=== PATIENT | female | born 1945 | race Asian ===

== ENCOUNTER 2017-09-04 14:20 | Inpatient (IN) | payer OTHER ==
[~2017-09-04] VITALS: Ht 160 cm; Wt 55.8 kg
[2017-09-04] VITALS (8 sets, daily range): BP systolic 141–188; BP diastolic 80–99
[~2017-09-04 14:20] MED LIST: Actonel; DETROL LA4 MG PO; Diovan; LOVASTAT10 PO; MESTINON60 MG PO; VITAMIN D3400 UNIT PO; ZOFRAN ODT4 MG PO; [UNRECOGNIZED DRUG - OTHER]
[2017-09-04 15:00] LABS: ABSOLUTE BASOPHILS 0.1 thou/uL (0.0-0.2); ABSOLUTE EOSINOPHILS 0.1 thou/uL (0.0-0.7); ABSOLUTE MONOCYTES 0.4 thou/uL (0.0-1.2); ABSOLUTE NEUTROPHILS 4.5 thou/uL (1.6-8.1); BASOPHILS 1.4 %; EOSINOPHILS 2.3 %; HEMATOCRIT 44.7 % (37.0-47.0); LYMPHOCYTES 16.7 %; MCHC 33.6 g/dL (28.0-37.0); MCV 95.3 fL (80.0-100.0); MPV 9.3 fl. (7.2-11.1); NUCLEATED RBCS 0 /100WBC; PLATELET COUNT* 190 thou/uL (150-400); POLYS 73.6 %; RBC 4.69 mil/uL (4.20-5.00); RDW-CV 13.1 % (10.5-14.5); WBC 6.1 thou/uL (4.0-11.0)
[2017-09-04 15:10] LABS: ANION GAP 5 mmol/L (7-16); BUN 14 mg/dL (7-18); CALCIUM 9.2 mg/dL (8.5-10.1); CHLORIDE 105 mmol/L (98-107); CO2 31 mmol/L (21-32); CREATININE 0.8 mg/dL (0.6-1.3); GLUCOSE 138 mg/dL (70-99); INR 1.1; POTASSIUM 3.7 mmol/L (3.5-5.1); PROTIME 10.3 Seconds (9.20-11.50); SODIUM 141 mmol/L (136-145)
[2017-09-04 15:17] LABS: ALKALINE PHOSPHATASE 75 U/L (46-116); SGOT 26 U/L (15-37); SGPT 19 U/L (30-65); TOTAL BILIRUBIN 0.9 mg/dL (<0.1-1.0); TOTAL PROTEIN 8.3 g/dL (6.4-8.2); TROPONIN-I LEVEL <0.06 ng/mL (<0.06)
[2017-09-05] VITALS (11 sets, daily range): BP systolic 110–149; BP diastolic 57–83
[2017-09-05 03:47] LABS: CHOLESTEROL 183 mg/dL (<200); HDL CHOLESTEROL 63 mg/dL (>40); LDL CHOLESTEROL 103 mg/dL (<100); TC:HDL 2.9 Ratio (Not establshd); TRIGLYCERIDE 85 mg/dL (<150); VLDL 17 mg/dL (<40)
[2017-09-05 04:07] LABS: SERUM ASSESSMENT CLEAR
[2017-09-05 04:50] LABS: ALBUMIN 3.4 g/dL (3.4-5.0); CALCIUM 8.8 mg/dL (8.5-10.1); CREATININE 0.9 mg/dL (0.6-1.3); POTASSIUM 3.8 mmol/L (3.5-5.1); TOTAL BILIRUBIN 0.8 mg/dL (<0.1-1.0); TOTAL PROTEIN 6.8 g/dL (6.4-8.2)
[2017-09-05 04:58] LABS: HEMATOCRIT 41.1 % (37.0-47.0); HEMOGLOBIN 13.9 gm/dL (12.0-15.0); MCH 32.3 pg (26.0-34.0); MCHC 33.8 g/dL (28.0-37.0); MCV 95.6 fL (80.0-100.0); MPV 9.6 fl. (7.2-11.1); RBC 4.3 mil/uL (4.20-5.00); RDW-CV 12.9 % (10.5-14.5); WBC 6.4 thou/uL (4.0-11.0)
[2017-09-05] MEDS ORDERED: NORVASC5 MG PO (07:16)
[2017-09-05] MEDS ORDERED: CELEXA10 MG PO (07:17)
[2017-09-05] MEDS ORDERED: PYRIDOSTIGMINE60 M1 PO (07:18)
[2017-09-05] MEDS ORDERED: GLUCOSAMINE HC500 MG PO (08:10)
[2017-09-05] MEDS ORDERED: TURMERIC500 M2 PO (08:12)
[2017-09-05] MEDS ORDERED: FISH OIL 1,001000 M2 PO (08:16)
[2017-09-05] MEDS ORDERED: CENTRUM SILVER1 EAC4 PO (08:16)
[2017-09-05] MEDS ORDERED: ASPIR 8181 MG PO (08:16)
[2017-09-05] MEDS ORDERED: VITAMIN D-32000 UNIT PO (08:16)
[2017-09-05] MEDS ORDERED: TOPROL XL25 MG PO (08:17)
[2017-09-05] MEDS ORDERED: LIPITOR10 MG PO (08:18)
[2017-09-05] MEDS ORDERED: AVAPRO 150 MG150 M1 PO (08:18)
[2017-09-05] MEDS ORDERED: DETROL LA4 MG PO (08:19)
--- NOTE | 2017-09-05 14:17 | 2DMMODE ---
[place] [address] 2 D/M-MODE ECHOCARDIOGRAM Name: SIDDIQUIGERMAINE Room: [address] IN [facility]#: [id number] Admission: 09/04/17 Attend Phys: Cathy Kirk, Discharge: Date of : 47 Date of Service: 09/05/17 1417 Report #: [id number] THIS REPORT FOR: //name// APPROVED REPORT Study performed: 09/05/2017 10:55:35 EXAM: Comprehensive 2D, Doppler, and color-flow Echocardiogram Patient Location: In-Patient Room #: 006 Status: routine BSA: 1.70 HR: 67 bpm BP: 138/80 mmHg Rhythm: NSR Other Information Study Quality: Good Indications CVA/TIA Echo Enhancing Agent Indication: Rule out Shunt Agent(s) / Amount(s) Used: Agitated Saline 10 cc 2D Dimensions LVEF(%): 59.35 (>50%) IVSd: 13.58 (7-11mm) LVOT Diam: 20.41 (18-24mm) LVDd: 39.04 mm PWd: 10.39 (7-11mm) Ascending Ao: 32.20 (22-36mm) LVDs: 26.94 (25-40mm) Aortic Root: 34.84 mm Alvarez's LVEF: 59.35 % Volumes Left Atrial Volume (Systole) LA ESV Index: 22.60 mL/m2 Aortic Valve AoV Peak Vince.: 0.88 m/s AO Peak Gr.: 3.13 mmHg LVOT Max P.96 mmHg AO Mean Gr.: 1.70 mmHg LVOT Mean P.81 mmHg LVOT Max V: 0.70 m/s AO V2 VTI: 16.50 cm LVOT Mean V: 0.41 m/[place] [address] 2 D/M-MODE ECHOCARDIOGRAM Name: SIDDIQUIGERMAINE Room: [address] IN .R.#: [id number] Admission: 09/04/17 Attend Phys: Cathy Kirk, Discharge: Date of : 47 Date of Service: 09/05/17 1417 Report #: [id number] SOILA (VTI): 3.16 cm2 LVOT V1 VTI: 15.93 cm Mitral Valve E/A Ratio: 0.47 MV Decel. Time: 330.01 ms MV E Max Vince.: 0.34 m/s MV PHT: 95.70 ms MVA (PHT): 2.30 cm2 TDI E/Lateral E': 3.78 E/Medial E': 6.80 Medial E' Vince.: 0.05 m/s Lateral E' Vince.: 0.09 m/s Pulmonary Valve PV Peak Vince.: 0.76 m/s PV Peak Gr.: 2.33 mmHg Tricuspid Valve TR Peak Gr.: 17.81 mmHg RVSP: 22.00 mmHg Left Ventricle The left ventricle is normal size. There is normal LV segmental wall motion. There is normal left ventricular wall thickness. Left ventricular systolic function is normal. The left ventricular ejection fraction is within the normal range. LVEF is 60%. Grade I - abnormal relaxation pattern. Right Ventricle The right ventricle is normal size. The right ventricular systolic function is normal. Atria The left atrium size is normal. Interatrial septum is intact without evidence of ASD or PFO. The right atrium size is normal. Aortic Valve Mild aortic valve sclerosis. No aortic regurgitation is present. There is no aortic valvular stenosis. Mitral Valve There is mitral annular calcification. Trace mitral regurgitation. No evidence of mitral valve stenosis. Tricuspid Valve The tricuspid valve is normal in structure. Trace tricuspid regurgitation. The RVSP is ___22____ [place] [address] 2 D/M-MODE ECHOCARDIOGRAM Name: GERMAINE SIDDIQUI Room: [address] IN M.R.#: [id number] Admission: 09/04/17 Attend Phys: Cathy Kirk, Discharge: Date of : 47 Date of Service: 09/05/17 1417 Report #: [id number] Pulmonic Valve The pulmonary valve is normal in structure. There is no pulmonic valvular regurgitation. Great Vessels The aortic root is normal in size. IVC is normal in size and collapses with >50% inspiration Pericardium There is no pericardial effusion. <Conclusion> The left ventricle is normal size. There is normal left ventricular wall thickness. Left ventricular systolic function is normal. The left ventricular ejection fraction is within the normal range. LVEF is 60%. Grade I - abnormal relaxation pattern. The right ventricle is normal size. The left atrium size is normal. Mild aortic valve sclerosis. No aortic regurgitation is present. There is no aortic valvular stenosis. There is mitral annular calcification. Trace mitral regurgitation. The tricuspid valve is normal in structure. Trace tricuspid regurgitation. The RVSP is ___22____ mmHg. IVC is normal in size and collapses with >50% inspiration There is no pericardial effusion. There is normal LV segmental wall motion. Interatrial septum is intact without evidence of ASD or PFO. <ELECTRONICALLY SIGNED> By: Diego Dave MD, FACC 09/05/17 141 16 16 Diego Dave MD, FACC /INF
--- NOTE | 2017-09-05 15:51 | EKG ---
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 ANTONIO : 1945 Requested By: Cody Dorman Order Number: [id number] : Diego Dave Measurements Intervals [place] Rate: 72 P: 31 GA: 154 QRS: -1 QRSD: 85 T: 164 QT: 513 QTc: 562 Interpretive Statements Sinus rhythm LVH with secondary repolarization abnormality Prolonged QT interval No previous ECG available for comparison Electronically Signed On 09-05-2017 15:50:49 ADULT CARE PROVIDER by Diego Dave [email or web address] <ELECTRONICALLY SIGNED> By: Diego Dave MD, [facility] 09/05/17 1550 15 15 Diego Dave MD, FAC /EPI
--- NOTE | 2017-09-05 17:38 | CON ---
[address] [address] CONSULTATION Name: GERMAINE SIDDIQUI Rajeev Room: [address] IN M.R.#: [id number] Admission: 09/04/17 Attend Phys: Cathy Kirk MD Discharge: Date of : 47 Report #: [id number] THIS REPORT FOR: //name// CC: Cathy Long DATE OF SERVICE: 09/05/2017 HISTORY OF PRESENT ILLNESS: This is a 71-year-old female patient who was evaluated by me for stroke-like symptoms, which started yesterday. She tells me the symptoms are on the left side and it is mainly the tingling and numbness, but some of the records indicate that this patient may have had some weakness also. She has not progressed, the symptoms came spontaneously and has stayed about the same, she does not know any aggravating or relieving factor for that. REVIEW OF SYSTEMS: Indicate the history is somewhat difficult, but the family says that she has been to [facility] as well as [facility] for similar symptoms, but they did not find a stroke. They thought her symptoms were related to her hypertension. She also has a history of migraine headache. They are not very frequent, but they usually unilateral. They come spontaneously, but is associated with photophobia. She never had any symptoms referable to focalities with her migraine. I carried out rest of the 14-point system, it looks unremarkable. She said she did have some heart problems and hyperlipidemia, but she does not know anything more about that. She still is having tingling and numbness, but overall her symptoms are better. She denies any visual, ENT, cardiac, respiratory, GI, , musculoskeletal, constitutional, dermatological, hematological, psychiatric, throat, allergic, endocrine symptom associated with present symptomatology. PAST MEDICAL HISTORY: Positive for similar symptoms, but I do not have the workup available. FAMILY HISTORY: Negative for early age stroke. SOCIAL HISTORY: She does not smoke or drink any alcohol. PHYSICAL EXAMINATION: The patient's examinations indicate that this patient is alert, responsive, she believes her speech, concentration, fund of knowledge and memory is at her baseline. Cranial nerve examination 2-12 is unremarkable. She does have subjective numbness, but otherwise motor, sensory, reflex and tone looks symmetrical. She has no cerebellar sign. There is no carotid bruit or papilledema. She is a reasonably well-developed individual who does not have any dysmorphic features of eyes, ears, and face. Her visions and hearing looks adequate. She has no thyroid mass. Cardiac examination does not appear to be showing any atrial fibrillations or any definite abnormality. She has no rhonchi on either side and no respiratory difficulty. Blood pressure is 138/80, [facility] [address] [place] [address] CONSULTATION Name: GERMAINE SIDDIQUI Room: [address]#: [id number] Admission: 09/04/17 Attend Phys: Cathy Kirk MD Discharge: Date of : 47 Report #: [id number] pulse is 69, and temperature is 97.6. It was somewhat high when she came in. Respiratory rate is 17. LABORATORY DATA: White count is 6.4. Sodium is 132. Her CTA was reviewed and it does show penumbra, but that is difficult to distinguish from hemiplegic migraine. IMPRESSION: Cerebrovascular accident versus hemiplegic migraine versus combination. She will need further workup to evaluate that further. Her MRI is already ordered by you and we will look at the MRI. RECOMMENDATIONS: 1. Await MRI. 2. I discussed the differential with the patient and the family. 3. She will need management of the vascular risk factor, it does not matter what her etiology is and I discussed all of it with the patient and told her that we will follow up after the MRI is done. Thank you very much for this referral. <ELECTRONICALLY SIGNED> By: Johnie Clayton MD 09/05/17 1738 1104 1705Johnie Clayton MD /nt
[2017-09-06] VITALS (11 sets, daily range): BP systolic 102–151; BP diastolic 62–91
[2017-09-06 05:12] LABS: GLYCOHEMOGLOBIN (HGB A1C) 5.2 % (4.8-5.6)
--- NOTE | 2017-09-06 17:24 | TEE ---
[place] [address] TRANSESOPHAGEAL ECHOCARDIOGRAM Name: GERMAINE SIDDIQUI Room: [address] IN [facility]#: [id number] Admission: 09/04/17 Attend Phys: Cathy Kirk, Discharge: Date of : 47 Date of Service: 09/06/17 1723 Report #: [id number] THIS REPORT FOR: //name// APPROVED REPORT Study performed: 09/06/2017 10:58:32 EXAM: Transesophageal Echocardiogram Patient Location: In-Patient Room #: [facility] Status: routine BSA: 1.57 HR: 70 bpm BP: 132/78 mmHg Rhythm: NSR Other Information Study Quality: Good Indications CVA/TIA Echo Enhancing Agent Indication: Rule out Shunt Agent(s) / Amount(s) Used: Agitated Saline 20 cc Procedure After obtaining informed consent, patient underwent transesophageal echo in the [employer]. Type of Sedation : Conscious Sedation Sedation was administered by Tiffany Bui RN. Sedation start time: 1110 Case end Time: 1127 Sedation was achieved intravenously with: Versed (3) Fentanyl (25) Transesophageal probe was inserted and advanced into esophagus without difficulty by Adithya Moreno MD, FACC. Echo enhancement indication: R/O Septal defect. Echo enhancement agent administered: Agitated Saline The SUMANTH was performed without complications. Throughout the procedure, the blood pressure, pulse oximetry, cardiac rhythm, and rate were monitored. The patient tolerated the procedure without adverse effects. Recovery from conscious sedation was uneventful and [place] [address] TRANSESOPHAGEAL ECHOCARDIOGRAM Name: GERMAINE SIDDIQUI Room: [address]#: [id number] Admission: 09/04/17 Attend Phys: Cathy Kirk, Discharge: Date of : 47 Date of Service: 09/06/17 1723 Report #: [id number] Left Ventricle The left ventricle is normal size. There is normal LV segmental wall motion. There is normal left ventricular wall thickness. Left ventricular systolic function is normal. LVEF is 60-65%. Right Ventricle The right ventricle is normal size. The right ventricular systolic function is normal. Atria The left atrium size is normal. Small PFO is noted. The right atrium size is normal. Aortic Valve The aortic valve is normal in structure. No aortic regurgitation is present. There is no aortic valvular stenosis. Mitral Valve The mitral valve is normal in structure. Trace mitral regurgitation. No evidence of mitral valve stenosis. Tricuspid Valve The tricuspid valve is normal in structure. Trace tricuspid regurgitation. Pulmonic Valve The pulmonary valve is normal in structure. There is no pulmonic valvular regurgitation. Great Vessels The aortic root is normal in size. Atherosclerotic plaque is present in the aortic arch. Pericardium There is no pericardial effusion. <Conclusion> The left ventricle is normal size. There is normal left ventricular wall thickness. Left ventricular systolic function is normal. LVEF is 60-65%. [place] [address] TRANSESOPHAGEAL ECHOCARDIOGRAM Name: GERMAINE SIDDIQUI Room: [address] IN [facility].#: [id number] Admission: 09/04/17 Attend Phys: Cathy Kirk, Discharge: Date of : 47 Date of Service: 09/06/171722 Report #: [id number] Trace mitral regurgitation. Atherosclerotic plaque is present in the aortic arch. <ELECTRONICALLY SIGNED> By: Adithya Moreno MD, FACC 09/06/171722 22 22 Adithya Moreno MD, FACC /INF
[2017-09-07] VITALS: BP 122/61
[2017-09-07 04:04] VITALS: BP 121/78
--- NOTE | 2017-09-07 06:25 | CON ---
[address] [address] CONSULTATION Name: GERMAINE SIDDIQUI Room: [address] IN M.R.#: [id number] Admission: 09/04/17 Attend Phys: Cathy Kirk MD Discharge: Date of : 47 Report #: [id number] THIS REPORT FOR: //name// CC: Cathy Long INDICATION: CVA. HISTORY OF PRESENT ILLNESS: The patient is a 71-year-old Syriac female who was admitted to the hospital with left-sided weakness and numbness and tingling. Noninvasive radiologic evaluation reveals evidence of stroke. The patient is being referred for further evaluation for possible cardioembolic source. Review of the noninvasive data actually suggests multiple foci of CVA, suggesting embolic phenomenon. The patient reports some occasional chest pain that is prolonged in nature, associated with emotional stress usually in the left back area. She was evaluated in 2011 at [facility]. Apparently at that time, no intervention was undertaken. Those outside records are pending at this time. Presently, she is not having chest pain. She denies orthopnea or shortness of breath. She denies palpitations. There is no history of atrial fibrillation. PAST MEDICAL HISTORY: The patient reports heart catheterization in 2012 with no intervention. The patient reports myasthenia gravis involving her eyes. There is a history of hypertension. The patient has a history of hyperlipidemia. ALLERGIES: CHLORTHALIDONE, ZETIA, HYDROCODONE, NITROFURANTOIN, PENICILLIN, PSEUDOEPHEDRINE, SEAFOOD, COQ10. HOME MEDICATIONS: Amlodipine 5 mg daily, aspirin 81 mg daily, atorvastatin 10 mg at bedtime, vitamin D3 2000 units daily, Celexa 10 mg daily, fish oil 1000 mg daily, glucosamine 500 mg daily, Avapro 150 mg daily, metoprolol succinate 25 mg daily, multivitamin 1 tablet daily, pyridostigmine 60 mg t.i.d., Detrol LA 4 mg daily, turmeric 500 mg daily. FAMILY HISTORY: Noncontributory. SOCIAL HISTORY: The patient is . She does not smoke. She does not drink alcohol. REVIEW OF SYSTEMS: A 14-point review of systems is positive for medical allergies outlined above, history of depression that is fairly well controlled. She wears glasses without acute visual changes. She does have myasthenia gravis involving her eyes. PHYSICAL EXAMINATION: VITAL SIGNS: Stable. Blood pressure 126/69, pulse 59 [place] [address] CONSULTATION Name: GERMAINE SIDDIQUI Room: [address]#: [id number] Admission: 09/04/17 Attend Phys: Cathy Kirk MD Discharge: Date of : 47 Report #: [id number] GENERAL: This is a pleasant female in no distress. Mood and affect appropriate. HEENT: Extraocular muscles appear to be intact. Mucous membranes are moist. NECK: Shows no jugular venous distention. There are no carotid bruits. CHEST: Reveals clear lung hale without wheezes, rales or rhonchi. CARDIAC: Reveals a regular rhythm with normal S1 and S2. I do not appreciate gallop or murmur. ABDOMEN: Reveals normal bowel sounds. The abdomen is soft and nontender. EXTREMITIES: Shows no edema. Peripheral pulses are 2+ and easily palpable. LABORATORY DATA: A 12-lead EKG reveals sinus rhythm with probable left ventricular hypertrophy with repolarization abnormality. I do not appreciate any dysrhythmia. Labs are reviewed. White blood cell count 6.4, hemoglobin 13.9, platelet count 173,000. Coags within normal limits. Electrolytes within normal limits. BUN 16, creatinine 0.9. Serum glucose 97. Troponin less than 0.06. Total cholesterol 183. LDL 103, HDL 63, triglycerides 85. MRI of the head shows multiple small subcentimeter patchy foci suggesting prior CVA. This would suggest embolic or ischemic infarction. IMPRESSION AND RECOMMENDATIONS: 1. Cerebrovascular accident, etiology not clear. At this point in time, we will proceed with transesophageal echocardiogram to evaluate for possible cardioembolic source. If this is unremarkable, I would recommend an implantable loop recorder to evaluate for possible paroxysmal atrial fibrillation. 2. Hypertension. Blood pressure appears to be adequately controlled on current regimen. 3. Hyperlipidemia. LDL cholesterol remains minimally elevated. We would increase atorvastatin to 40 mg daily. 4. Atypical chest pain. We will obtain outside records from [facility] and consider possible outpatient stress testing depending on the results of these previous studies. <ELECTRONICALLY SIGNED> By: Adithya Moreno MD, FACC 09/07/17 0625 1107 1915Adithya Moreno MD, FACC /nt
[2017-09-07 08:20] VITALS: BP 130/73
[2017-09-07] MEDS ORDERED: ATORVASTATIN CA40 MG PO (11:13)
[2017-09-07] MEDS ORDERED: CLOPIDOGREL75 MG PO (11:13)
[2017-09-07 11:38] VITALS: BP 134/66
[2017-09-07 12:06] VITALS: BP 130/73
[2017-09-07 12:46] VITALS: BP 130/73
== END 2017-09-07 15:27 | disposition home or self-care (01) | DRG 65 ==
LOC: M.ERS 14:20 → M.ICU 15:39 → M.TBA-ER 15:39 → M.ICU 17:13 → M.2W 09-05 17:05
PROVIDERS: Emergency Medicine Emergency Medical Services; Psychiatry & Neurology Neuromuscular Medicine; ADMIT Internal Medicine
PROC: B24BZZ4 Ultrasonography of Heart with Aorta, Transesophageal (ICD-10-PCS; principal; 2017-09-06)
DX: I63.9 Cerebral infarction, unspecified (principal); G81.94 Hemiplegia, unspecified affecting left nondominant side; I10 Essential (primary) hypertension; E78.5 Hyperlipidemia, unspecified; Z79.899 Other long term (current) drug therapy; Z88.0 Allergy status to penicillin; Z88.8 Allergy status to other drugs, medicaments and biological substances; Z91.013 Allergy to seafood; Z88.6 Allergy status to analgesic agent

== ENCOUNTER 2017-11-30 11:58 | Emergency (ER) | payer OTHER ==
[~2017-11-30] VITALS: Ht 160 cm; Wt 54.4 kg
[~2017-11-30 11:58] MED LIST changes: +ASPIR 8181 MG PO; +ATORVASTATIN CA40 MG PO; +AVAPRO 150 MG150 M1 PO; +CELEXA10 MG PO; +CENTRUM SILVER1 EAC4 PO; +CLOPIDOGREL75 MG PO; +FISH OIL 1,001000 M2 PO; +GLUCOSAMINE HC500 MG PO; +LIPITOR10 MG PO; +NORVASC5 MG PO; +PYRIDOSTIGMINE60 M1 PO; +TOPROL XL25 MG PO; +TURMERIC500 M2 PO; +VITAMIN D-32000 UNIT PO
[2017-11-30 13:40] VITALS: BP 119/63
== END 2017-11-30 13:40 | disposition home or self-care (01) ==
LOC: M.ERS 11:58
DX: S00.03XA Contusion of scalp, initial encounter (principal); I10 Essential (primary) hypertension; E78.5 Hyperlipidemia, unspecified; Z86.73 Personal history of transient ischemic attack (TIA), and cerebral infarction without residual deficits; Z91.013 Allergy to seafood; Z88.0 Allergy status to penicillin; Z88.8 Allergy status to other drugs, medicaments and biological substances; W01.198A Fall on same level from slipping, tripping and stumbling with subsequent striking against other object, initial encounter; Y93.89 Activity, other specified; Y92.89 Other specified places as the place of occurrence of the external cause; Y99.8 Other external cause status

== ENCOUNTER 2018-06-18 11:41 | Emergency (ER) | payer OTHER ==
[~2018-06-18] VITALS: Ht 160 cm; Wt 55.3 kg
[2018-06-18] MEDS ORDERED: FISH OIL 1,001000 M2 PO (11:55)
[2018-06-18] MEDS ORDERED: CHILDREN'S ASPI81 M1 PO (11:55)
[2018-06-18] MEDS ORDERED: VITAMIN D3400 UNIT PO (11:55)
[2018-06-18] MEDS ORDERED: LIPITOR10 MG PO (11:56)
[2018-06-18] MEDS ORDERED: PHENERGAN 25 MG25 M1 PO (11:56)
[2018-06-18] MEDS ORDERED: TOPROL XL25 MG PO (11:57)
[2018-06-18] MEDS ORDERED: DETROL LA4 MG PO (11:57)
[2018-06-18] MEDS ORDERED: IRBESARTAN150 MG PO (11:57)
[2018-06-18] MEDS ORDERED: CELEXA10 MG PO (11:57)
[2018-06-18] MEDS ORDERED: MESTINON60 MG PO (11:58)
[2018-06-18] MEDS ORDERED: TUMERSAID TABL1 EACH PO (11:58)
[2018-06-18 11:59] LABS: ABSOLUTE BASOPHILS 0.1 thou/uL (0.0-0.2); ABSOLUTE EOSINOPHILS 0.2 thou/uL (0.0-0.7); ABSOLUTE LYMPHOCYTES 1.5 thou/uL (0.8-5.3); ABSOLUTE MONOCYTES 0.4 thou/uL (0.0-1.2); ABSOLUTE NEUTROPHILS 2.1 thou/uL (1.6-8.1); BASOPHILS 1.3 %; EOSINOPHILS 5.4 %; HEMATOCRIT 38.8 % (37.0-47.0); HEMOGLOBIN 13.1 gm/dL (12.0-15.0); MCH 32.6 pg (26.0-34.0); MCHC 33.7 g/dL (28.0-37.0); MCV 96.7 fL (80.0-100.0); MONOCYTES 9.5 %; MPV 8.5 fl. (7.2-11.1); NUCLEATED RBCS 0 /100WBC; PLATELET COUNT* 206 thou/uL (150-400); POLYS 48.8 %; RBC 4.01 mil/uL (4.20-5.00); RDW-CV 13.1 % (10.5-14.5); WBC 4.4 thou/uL (4.0-11.0)
[2018-06-18 12:11] LABS: ANION GAP 6 mmol/L (7-16); BUN 20 mg/dL (7-18); CHLORIDE 104 mmol/L (98-107); CO2 30 mmol/L (21-32); CREATININE 0.8 mg/dL (0.6-1.3); GLUCOSE 99 mg/dL (70-99); POTASSIUM 3.6 mmol/L (3.5-5.1); SODIUM 140 mmol/L (136-145)
[2018-06-18 12:13] LABS: APTT 27.3 Seconds (25.0-31.3); PROTIME 10.2 Seconds (9.20-11.50)
[2018-06-18 12:36] LABS: ALBUMIN 3.6 g/dL (3.4-5.0); ALKALINE PHOSPHATASE 62 U/L (46-116); CK-MB MASS 0.8 ng/mL (<0.5-3.6); LIPASE 163 U/L (73-393); NT-PRO BRAIN NAT PEPTIDE 503 pg/mL (<300); SGOT 20 U/L (15-37); SGPT 18 U/L (30-65); TOTAL BILIRUBIN 0.7 mg/dL (<0.1-1.0); TOTAL PROTEIN 7.6 g/dL (6.4-8.2); TROPONIN-I LEVEL <0.06 ng/mL (<0.06)
[2018-06-18 12:59] VITALS: BP 129/77
--- NOTE | 2018-06-19 16:34 | EKG ---
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: [place] : 1945 Requested By: Berlin Cutler Order Number: [id number] MD: Diego Dave Measurements Intervals [place] Rate: 63 P: 51 RI: 171 QRS: 43 QRSD: 91 T: 224 QT: 472 QTc: 484 Interpretive Statements Sinus rhythm Abnormal R-wave progression, early transition Repol abnrm, prob ischemia, anterolateral lds Baseline wander in lead(s) V1,V2,V6 Compared to ECG 09/04/2017 16:16:51 Possible ischemia now present Left ventricular hypertrophy no longer present Prolonged QT interval no longer present Electronically Signed On 06-19-2018 16:34:21 MONITORING SPECIALIST by Diego Dave [email or web address] <ELECTRONICALLY SIGNED> By: Diego Dave MD, FACC 06/19/18 1634 1149 1149 Diego Dave MD, FACC /EPI
== END 2018-06-18 13:00 | disposition home or self-care (01) ==
LOC: M.ERS 11:41
PROVIDERS: Family Medicine
DX: R07.89 Other chest pain (principal); I10 Essential (primary) hypertension; E78.5 Hyperlipidemia, unspecified; Z86.73 Personal history of transient ischemic attack (TIA), and cerebral infarction without residual deficits; Z88.0 Allergy status to penicillin; Z88.5 Allergy status to narcotic agent; Z88.8 Allergy status to other drugs, medicaments and biological substances; Z91.013 Allergy to seafood

== ENCOUNTER 2019-01-30 18:57 | Emergency (ER) | payer OTHER ==
[~2019-01-30] VITALS: Ht 160 cm; Wt 60.3 kg
[~2019-01-30 18:57] MED LIST changes: +CHILDREN'S ASPI81 M1 PO; +IRBESARTAN150 MG PO; +PHENERGAN 25 MG25 M1 PO; +TUMERSAID TABL1 EACH PO
[2019-01-30 19:22] LABS: URINE BILIRUBIN NEGATIVE (Negative); URINE BLOOD NEGATIVE (Negative); URINE CLARITY CLEAR; URINE COLOR YELLOW; URINE GLUCOSE-RANDOM NEGATIVE (Negative); URINE KETONES NEGATIVE (Negative); URINE LEUKOCYTES-REFLEX TRACE (Negative); URINE NITRITE-REFLEX NEGATIVE (Negative); URINE PROTEIN NEGATIVE (Negative); URINE UROBILINOGEN 0.2 E.U./dl (0.2-1.0)
[2019-01-30 19:33] LABS: CASTS None Seen /LPF (None Seen); SQUAMOUS 4-10 Moderate /LPF (0-3)
[2019-01-30 19:35] LABS: URINE RBC 0-2 Rare /HPF (0-2); URINE WBC-REFLEX 0-5 Rare /HPF (0-5)
[2019-01-30 19:36] LABS: BACTERIA-REFLEX 1-9 Few /HPF (None Seen); CRYSTALS None Seen /LPF (None Seen); RENAL EPITHELIAL CELLS 0-3 Few /LPF (None Seen)
[2019-01-30] MEDS ORDERED: NORVASC5 MG PO (19:39)
[2019-01-30] MEDS ORDERED: CENTRUM SILVER1 EAC4 PO (19:40)
[2019-01-30] MEDS ORDERED: PROAIR HFA8.5 GM INH (19:42)
[2019-01-30] MEDS ORDERED: ACTONEL 35 MG35 M1 PO (19:43)
[2019-01-30] MEDS ORDERED: ZETIA10 MG PO (19:43)
[2019-01-30 19:50] LABS: ABSOLUTE BASOPHILS 0.1 thou/uL (0.0-0.2); ABSOLUTE EOSINOPHILS 0.3 thou/uL (0.0-0.7); ABSOLUTE LYMPHOCYTES 1.8 thou/uL (0.8-5.3); ABSOLUTE MONOCYTES 0.7 thou/uL (0.0-1.2); ABSOLUTE NEUTROPHILS 3.7 thou/uL (1.6-8.1); BASOPHILS 1.3 %; EOSINOPHILS 5.2 %; HEMATOCRIT 37.4 % (37.0-47.0); HEMOGLOBIN 12.6 gm/dL (12.0-15.0); LYMPHOCYTES 27.2 %; MCH 32.3 pg (26.0-34.0); MCHC 33.8 g/dL (28.0-37.0); MCV 95.7 fL (80.0-100.0); MPV 9.9 fl. (7.2-11.1); NUCLEATED RBCS 0 /100WBC; PLATELET COUNT* 228 thou/uL (150-400); POLYS 55.3 %; RBC 3.91 mil/uL (4.20-5.00); RDW-CV 12.9 % (10.5-14.5); WBC 6.7 thou/uL (4.0-11.0)
[2019-01-30 20:00] LABS: ANION GAP 8 mmol/L (7-16); BUN 18 mg/dL (7-18); CALCIUM 9.1 mg/dL (8.5-10.1); CHLORIDE 106 mmol/L (98-107); CO2 29 mmol/L (21-32); GLUCOSE 115 mg/dL (70-99); POTASSIUM 4.6 mmol/L (3.5-5.1); SODIUM 143 mmol/L (136-145)
[2019-01-30 20:03] LABS: APTT 20.5 Seconds (25.0-31.3); INR 0.9; PROTIME 9.6 Seconds (9.20-11.50)
[2019-01-30 20:11] LABS: ALBUMIN 3.5 g/dL (3.4-5.0); ALKALINE PHOSPHATASE 68 U/L (46-116); NT-PRO BRAIN NAT PEPTIDE 348 pg/mL (<300); SGOT 28 U/L (15-37); SGPT 21 U/L (30-65); TOTAL BILIRUBIN 0.5 mg/dL (<0.1-1.0); TOTAL PROTEIN 7.3 g/dL (6.4-8.2); TROPONIN-I LEVEL <0.06 ng/mL (<0.06)
[2019-01-30 20:41] VITALS: BP 122/66
--- NOTE | 2019-01-31 16:46 | EKG ---
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 Electronically Signed On 01-31-2019 16:46:28 CDT by Adithya Moreno [email or web address] <ELECTRONICALLY SIGNED> By: Adithya Moreno MD, FACC 01/31/19 1646 23 23 Adithya Moreno MD, [facility] /EPI
== END 2019-01-30 20:41 | disposition home or self-care (01) ==
LOC: M.ERS 18:57
PROVIDERS: Family Medicine
DX: R53.1 Weakness (principal); R42 Dizziness and giddiness; I10 Essential (primary) hypertension; E78.5 Hyperlipidemia, unspecified; Z88.0 Allergy status to penicillin; Z88.5 Allergy status to narcotic agent; Z88.8 Allergy status to other drugs, medicaments and biological substances; Z86.73 Personal history of transient ischemic attack (TIA), and cerebral infarction without residual deficits